=== PATIENT | female | born 1975 | race Caucasian/White ===

== ENCOUNTER 2016-04-17 07:10 | Outpatient (CLI) | payer BC ==
[~2016-04-17] VITALS: Ht 167.6 cm; Wt 63.6 kg
[~2016-04-17 07:10] MED LIST: IRON325 MG PO; TYLENOL 325MG325 MG PO; VITAMIN D32000 I1 PO; VTAMINC250TA PO; WOMEN'S DAILY1 TAB PO
[2016-04-17] MEDS ORDERED: MURO-128 5% OP3.5 GM OP (07:33)
[2016-04-17 07:34] VITALS: BP 108/97; PULSE 103
[2016-04-17 08:25] VITALS: BP 88/40; PULSE 80
[2016-04-17 08:40] VITALS: BP 111/69; PULSE 80
[2016-04-17 08:55] VITALS: BP 110/55; PULSE 74
[2016-04-17 09:25] VITALS: BP 126/74; PULSE 89
[2016-04-17 09:35] VITALS: BP 119/74; PULSE 85
[2016-04-17 10:41] LABS: CEREBROSPINAL TUBE #4; CSF APPEARANCE CLEAR; CSF COLOR COLORLESS
[2016-04-20 13:44] LABS: CSF,IGG 5.7 mg/dL (<=8.1)
[2016-04-20 14:40] LABS: ALBUMIN CSF 20.5 mg/dL (<=27.0); CSF IGG/ALBUMIN 0.28 (<=0.21)
[2016-04-20 15:10] LABS: CSF SYNTHESIS RATE 19.08 mg/24 h (<=12); CSF-IGG INDEX 1.56 (<=0.85); IGG/ALBUMIN SERUM 0.18 (<=0.40)
== END 2016-04-17 10:00 | disposition home or self-care (01) ==
LOC: COL.RAD 07:10
PROVIDERS: Psychiatry & Neurology Neurology
DX: G35 Multiple sclerosis (principal)

== ENCOUNTER 2021-04-03 07:43 | Day surgery (SDC) | payer BC ==
[~2021-04-03] VITALS: Ht 167.6 cm; Wt 56.3 kg
[2021-04-03] VITALS (11 sets, daily range): BP systolic 96–117; BP diastolic 52–79; PULSE 75–94; TEMP 97.9–98
[~2021-04-03 07:43] MED LIST changes: +MASON NATURAL2000 IU PO; +MURO-128 5% OP3.5 GM OP; -VITAMIN D32000 I1 PO
[2021-04-03 08:46] LABS: HEMATOCRIT 39.3 % (37.0-47.0); HEMOGLOBIN 13.2 g/dl (12.5-16.0); MEAN CELL VOLUME 95 fl (80.0-100.0); MEAN CORPUSCULAR HEMOGLOBIN 32 pg (27-31); MEAN CORPUSCULAR HGB CONC 34 g/dl (33.0-37.0); MEAN PLATELET VOLUME 10.1 fl (7.4-10.4); PLATELET COUNT 214 K/mm3 (130-400); RED BLOOD COUNT 4.16 M/mm3 (4.10-5.30); REDCELL DISTRIBUTION WIDTH-CV 13.1 % (11.5-14.5)
[2021-04-03 08:56] LABS: PROTHROMBIN TIME 11.4 SECONDS (9.7-12.8)
[2021-04-03 08:59] LABS: PARTIAL THROMBOPLASTIN TIME 25.1 SECONDS (26.0-37.0)
[2021-04-03] MEDS ORDERED: AUBAGIO14 MG PO (09:00)
[2021-04-03 09:01] LABS: CALCIUM 8.8 mg/dL (8.4-10.2); CREATININE, serum 0.84 mg/dL (0.57-1.11); POTASSIUM 4.1 mmol/L (3.5-4.5)
[2021-04-03] MEDS ORDERED: DITROPAN 5MG TAB5 MG PO (09:01)
[2021-04-03] MEDS ORDERED: ASPIRIN E.C. 8181 MG PO (09:01)
[2021-04-03] MEDS ORDERED: HAILEY FE 1-201 EACH PO (09:01)
--- NOTE | 2021-04-03 09:40 | NUR ---
SEE MERGE FOR ALL MEDICATION ADMINISTRATION TIMES/DOSAGES AND INTRA/POST PROCEDURE SEDATION ASSESSMENTS. PRE PROCEDURE ASSESSMENT COMPLETED IN [facility].
--- NOTE | 2021-04-03 10:55 | NUR ---
Patient arrived to Medical room 351 from laboratory administrative director at this time, she is alert/oriented, vital signs stable, denies any chest pain or dsicomfort, right radial access site is C/D/I, TR band has 9cc and will begin to deflat around 1230, IVF infusing, present in the room, denies needs, will continue to monitor
--- NOTE | 2021-04-03 15:00 | NUR ---
patient continues to do well, TR band deflated/ no signs of bleeding or hematoma, vital signs stable, denies pain or discomfort, independent in the room
--- NOTE | 2021-04-03 21:04 | NUR ---
ALERT AND OX4. DENIES SOA, CHEST PAIN. DIZZY BUT STATES ITS CHRONIC W HER MS. DENIES PAIN. TOOK OWN HOME MEDS DID NOT KNOW SHE WAS NOT SUPPOSE TO. INST NOT TO TAKE AM MEDS SOME ARE ON HOLD FOR A REASON. TAKE INST HERE. CALL LIGHT [place] REACH. NEEDS MET. TR BAND TO RT WRIST W NO BLEEDING.
[2021-04-04 00:14] VITALS: BP 94/59; PULSE 81; TEMP 97.7
[2021-04-04 03:56] VITALS: BP 100/52; PULSE 79; TEMP 98.1
[2021-04-04 08:32] LABS: HEMATOCRIT 38.3 % (37.0-47.0); HEMOGLOBIN 12.7 g/dl (12.5-16.0); MEAN CELL VOLUME 96 fl (80.0-100.0); MEAN CORPUSCULAR HEMOGLOBIN 32 pg (27-31); MEAN CORPUSCULAR HGB CONC 33 g/dl (33.0-37.0); MEAN PLATELET VOLUME 10.1 fl (7.4-10.4); PLATELET COUNT 194 K/mm3 (130-400); RED BLOOD COUNT 3.99 M/mm3 (4.10-5.30); REDCELL DISTRIBUTION WIDTH-CV 13.2 % (11.5-14.5)
[2021-04-04 08:33] VITALS: BP 105/60; PULSE 89; TEMP 98.1
--- NOTE | 2021-04-04 08:40 | NUR ---
PT PLEASANT, AXO4, DENIES PAIN, ASSESSMENT PERFORMED, MEDICATIONS GIVEN, PT REPORTS TAKING HER OWN LAST NIGHT, LIGHTER RN EDUCATED THAT THE HOSPITAL DISPENSES IT'S OWN MEDICATIONS, VIT D3 HELD SINCE SHE TOOK IT LAST NIGHT, NO OTHER NEEDS
[2021-04-04 08:53] LABS: CALCIUM 8.4 mg/dL (8.4-10.2); CREATININE, serum 0.8 mg/dL (0.57-1.11); POTASSIUM 3.6 mmol/L (3.5-4.5)
--- NOTE | 2021-04-04 09:41 | NUR ---
NICHOLAS met with the patient and her , Paco (ph#[phone]), to discuss discharge plan. The patient lives in [place] with her . She reports independence with ADLs and has a walking stick for strenuous walks/hikes. The patient's PCP is Dr. Jaymie Esposito and she receives her medications from [facility]. She reports no difficulties obtaining her meds. The patient does not have a DPOA-HC in EMR, but she states that she does have one completed and that it designates her . The patient plans on returning home with her upon discharge. No additional needs at this time. *Discharge plan: home with *
--- NOTE | 2021-04-04 09:57 | NUR ---
Initial visit; Patient and her thanked Insulation Extruder Operator for looking in on her and offering encouragement, God's blessings and to keep her in Insulation Extruder Operator's prayers.
[2021-04-04 11:30] VITALS: BP 113/76; PULSE 90; TEMP 98.1
[2021-04-04] MEDS ORDERED: EPA FISH OIL1 SGL PO (11:38)
--- NOTE | 2021-04-04 12:14 | NUR ---
DISCHARGE EDUCATION PROVIDED, MOVEMENT RESTRICTIONS GIVEN FOR RW, IV REMOVED, TELE REMOVED, NO OTHER NEEDS
--- NOTE | 2021-04-04 12:31 | NUR ---
PT ESCORTED OUT, PT AMBULATING, BELONGINGS TAKEN WITH PT, NO OTHER NEEDS
== END 2021-04-04 12:30 | disposition home or self-care (01) ==
LOC: COL.CAR 07:43 → MEDICAL 11:09 → COL.CAR 04-04 12:30
PROVIDERS: Internal Medicine Cardiovascular Disease
DX: R94.39 Abnormal result of other cardiovascular function study (principal); R07.89 Other chest pain; Z79.899 Other long term (current) drug therapy
CPT/HCPCS: OP; C1769; J1265; J1644; J2250; J3010; Q9967